=== PATIENT | male | born 1960 | race Caucasian/White ===

== ENCOUNTER 2019-12-05 10:34 | Emergency (ER) | payer OTHER ==
[~2019-12-05] VITALS: Ht 162 cm; Wt 79.0 kg
[2019-12-05 10:41] VITALS: BP 146/94
[2019-12-05] MEDS ORDERED: KETOROLAC 60 MG/2 ML VIAL IM ONE (11:00)
--- NOTE | 2019-12-05 11:19 | ED Back Pain ---
General Chief Complaint: Back Problems Stated Complaint: BACK INJ Nursing Triage Note: Patient fell one week ago and was having back and rib pain. Was getting better,but moved wrong yesterday and is now having posterior left sided back pain with movement. Is currently rated at 6/10 with movement. 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 Patient states pain was improving until he reached or sneezed yesterday and subsequently developed sharp stabbing pain in his left flank. Patient denies any flank pain, shortness of breath. Pain is nonradiating. Pain is currently rated as moderate to severe. Patient took naproxen today without relief. Denies chest pain, leg pain, history of DVT or PE. Patient's nonanticoagulant therapy. Timing/Duration: 24 Hours Severity: Moderate Pain/Injury Location: Back Modifying Factors: Improves With Movement Associated Symptoms: muscle spasms; No numbness in legs/feet, No tingling in legs/feet, No lower back pain, No loss of bladder control, No loss of bowel control Allergies and Home Medications Allergies Coded Allergies: No Known Drug Allergies (Unverified , 12/05/19) Patient Home Medication List Home Medication List Reviewed: Yes Review of Systems Constitutional: see HPI EENTM: see HPI Respiratory: see HPI Cardiovascular: see HPI Gastrointestinal: see HPI Genitourinary: see HPI Musculoskeletal: back pain, muscle pain, muscle stiffness Skin: see HPI Psychiatric/Neurological: See HPI Past Gsrwewg-Awvznc-Mvgoza Hx Past Med/Social Hx: Reviewed Nursing Past Med/Soc Hx Patient Social History Alcohol Use: Rarely Uses Recreational Drug Use: No Smoking Status: Never a Smoker Recent Foreign Travel: No Contact w/Someone Who Travel: No Recent Infectious Disease Expo: No Recent Hopitalizations: No Seasonal Allergies Seasonal Allergies: No Past Medical History Surgeries: Yes Orthopedic Respiratory: No Cardiac: Yes High Cholesterol, Hypertension Neurological: No Genitourinary: No Gastrointestinal: No Musculoskeletal: No Endocrine: Yes Diabetes, Non-Insulin dep HEENT: No Cancer: No Psychosocial: No Integumentary: No Blood Disorders: No Adverse Reaction/Blood Tranf: No Physical Exam Vital Signs Vital Signs - First Documented 12/05/19 10:41 Temp 36.9 Pulse 99 Resp 16 B/P (MAP) 146/94 (111) Pulse Ox 97 Capillary Refill : Less Than 3 Seconds Height, Weight, BMI Height: '" Weight: lbs. oz. kg; 30.00 BMI Method: General Appearance: No Apparent Distress, WD/WN HEENT: PERRL/EOMI Neck: Full Range of Motion, Non Tender Cardiovascular: Regular Rate, Rhythm Respiratory: Lungs Clear, Normal Breath Sounds Gastrointestinal: Non Tender, Soft Back: No Vertebral Tenderness, CVA Tenderness (L), Decreased Range of Motion, Muscle Spasm Neurologic/Psychiatric: Alert, Oriented x3, No Motor/Sensory Deficits Skin: Warm/Dry Progress/Results/Core Measures Results/Orders My Orders Orders - DIGNA MACK DO Ketorolac Injection (Toradol Injection) (12/05/19 11:00) Ribs 2-3 View Left (12/05/19 10:59) Medications Given in ED Current Medications Medications Dose Ordered Sig/Cosme Route Start Time Stop Time Status Last Admin Dose Admin Ketorolac Tromethamine 60 mg ONCE ONCE IM 12/05/19 11:00 12/05/19 11:01 DC 12/05/19 11:06 60 MG Vital Signs/I&O 12/05/19 10:41 Temp 36.9 Pulse 99 Resp 16 B/P (MAP) 146/94 (111) Pulse Ox 97 Blood Pressure Mean: 111 Departure Communication (Admissions) Left rib series/PA chest: reviewed Reproducible muscle skeletal back pain without obvious displaced fracture pneumothorax on imaging studies. Toradol given for pain relief. Prescribed pain medication muscle relaxants. Patient is instructed that he cannot take prescription pain medication/muscle relaxants within [address] He is to avoid heavy lifting strenuous physical activity and follow-up with his PCP [facility]. Return precautions reviewed Impression Primary Impression: Thoracic back sprain Disposition: HOME, SELF-CARE Condition: Stable Departure-Patient Inst. Referrals: NO,LOCAL PHYSICIAN (PCP/Family) Primary Care Physician Patient Instructions: Muscle Strain (DC), Upper Back Pain Add. Discharge Instructions: Take naproxen for pain while driving. You may take tramadol and Flexeril at night but not within 8 [address] before [address]. Avoid heavy lifting and strenuous physical activity. Follow-up with your PCP upon returning home to [place]. Return to the closest ED if he develop new or worsening symptoms. All discharge instructions reviewed with patient and/or family. Voiced understanding. Scripts Cyclobenzaprine HCl (Cyclobenzaprine HCl) 10 Mg Tablet 10 MG PO TID, #30 TAB Prov: DIGNA MACK DO 12/05/19 Tramadol HCl (Tramadol HCl) 50 Mg Tablet 50 MG PO Q6H PRN for PAIN for 3 Days, TAB 0 Refills Prov: DIGNA MACK DO 12/05/19 DIGNA MACK DO Dec 05, 2019 11:19
[2019-12-05] MEDS ORDERED: TRM50T PO (11:22)
[2019-12-05] MEDS ORDERED: CYCL10TA9 PO (11:22)
--- NOTE | 2019-12-05 11:24 | Diagnostic Imaging Report ---
INDICATION: Approximately one week post fall with severe pain left lower rib and back area.. TECHNIQUE: 4 views left RIBS, 11:06 AM. CORRELATION STUDY: None FINDINGS: There are several old left-sided rib fracture deformities present. There is however slight offset at the left 6th and 7th rib suspect for acute fractures. Visualized left lung is relatively clear. No significant infiltrate, effusion and/or pneumothorax. IMPRESSION: 1. Findings do suggest subtle left 6th and 7th rib fractures with additional old healed rib fractures present. Dictated by: Dictated on workstation # [id number]
== END 2019-12-05 11:28 | disposition home or self-care (01) ==
LOC: ER FS 10:38
DX: S23.3XXA Sprain of ligaments of thoracic spine, initial encounter (principal); W19.XXXA Unspecified fall, initial encounter
CPT/HCPCS: 71100